=== PATIENT | female | born 1985 | race African-American/Black ===

== ENCOUNTER 2017-12-17 19:47 | Emergency (ER) | payer SELFPAY ==
[~2017-12-17] VITALS: Ht 160 cm; Wt 50.0 kg
[2017-12-17] MEDS ORDERED: PENICILLIN V POTASSIUM 500 MG TABLET PO ONE (20:30)
[2017-12-17 21:03] VITALS: BP 118/68
== END 2017-12-17 21:23 | disposition home or self-care (01) ==
LOC: EMS 19:52
DX: K08.89 Other specified disorders of teeth and supporting structures (principal); F12.90 Cannabis use, unspecified, uncomplicated; F17.210 Nicotine dependence, cigarettes, uncomplicated; Z88.5 Allergy status to narcotic agent
CPT/HCPCS: 99283